=== PATIENT | male | born 1950 | race Caucasian/White ===

== ENCOUNTER 2017-12-22 09:23 | Day surgery (SDC) | payer OTHER ==
[2017-12-21 15:30] VITALS: BMI 29.8
[2017-12-22] MEDS ORDERED: TETRACAINE 0.5% OPHTH SOLN 2 ML BOTTLE ONE (12:52)
[2017-12-22] MEDS ORDERED: BACITRACIN 3.5 GM OPTHALMIC OINT TUBE ONE (12:52)
[2017-12-22] MEDS ORDERED: POVIDONE-IODINE 5% OPHTHALMIC PREP 30 ML SOLUTION ONE (12:52)
[2017-12-22] MEDS ORDERED: LIDOCAINE 1%/EPI 1:100000 (20 ML MULTI DOSE VIAL) ONE (12:53)
[2017-12-22] MEDS ORDERED: BSS (NA/CA/MG/K) BALANCED SALT SOLUTION OPHTH SOLN 15 ML BOTTLE ONE (12:53)
[2017-12-22] MEDS ORDERED: MIDAZOLAM HCL 2 MG/2 ML SINGLE DOSE VIAL ONE (13:05)
[2017-12-22] MEDS ORDERED: BUPIVACAINE HCL 0.5% 250 MG/50 ML VIAL IJ ONE (13:34)
[2017-12-22] MEDS ORDERED: LIDOCAINE 1%/EPI 1:100000 (50 ML MULTI DOSE VIAL) INF ONE (13:34)
[2017-12-22] MEDS ORDERED: ceFAZolin SODIUM 1 GM VIAL ONE (13:43)
[2017-12-22] MEDS ORDERED: DEXAMETHASONE SOD PHOSPHATE 4 MG/1 ML VIAL ONE (13:43)
[2017-12-22] MEDS ORDERED: ONDANSETRON 4 MG/2 ML VIAL ONE (13:43)
[2017-12-22] MEDS ORDERED: BACITRACIN 3.5 GM OPTHALMIC OINT TUBE OS ONE (13:58)
[2017-12-22] MEDS ORDERED: ONDANSETRON 4 MG/2 ML VIAL IVPUSH PRN (14:23)
[2017-12-22] MEDS ORDERED: oxyCODONE HCL 5 MG TABLET PO PRN (14:23)
[2017-12-22] MEDS ORDERED: LACTATED RINGERS SOLUTION 1,000 ML IV SCH (14:30)
[2017-12-22 15:18] VITALS: TEMP 97.6
--- NOTE | 2017-12-22 15:31 | OP ---
DATE OF OPERATION: 12/22/2017 PREOPERATIVE DIAGNOSIS: Involutional entropion, left lower lid. POSTOPERATIVE DIAGNOSIS: Involutional entropion, left lower lid. PROCEDURE: 1. Lateral tarsal strip, left lower lid. 2. Transconjunctival plication of retractors. 3. Excision of orbicularis flap, left lower lid. SURGEON: Rosey Hou MD ANESTHESIA: Local with sedation. COMPLICATIONS: None. ESTIMATED BLOOD LOSS: 2-3 mL DESCRIPTION OF OPERATION: Patient was brought to the operating room, placed on the operating room table. Vital signs were monitored by Anesthesia. Tetracaine was placed in both eyes. Timeout was performed. Lateral canthal angle was marked, left lateral canthus. A 50/50 mixture of 2% Xylocaine with 1:100,000 epinephrine and 0.5% Marcaine was injected into the lateral canthus down to periosteum. Lateral third of the upper and lower lid and subconjunctivally in the inferior fornix. Patient was prepped and draped in usual sterile fashion exposing both eyes, and 4-0 silk traction stitch was passed through the central lid margin. Lateral canthal incision was made with a 15 blade, carried down to the orbital rim with a Chaffee needle. The inferior tristen of the lateral canthal tendon was from the orbit with sharp dissection. It was overlapped, marked with a sterile marking pen, divided into an anterior and posterior lamella. The anterior lamella was excised. The posterior lamella was denuded of posteriorly and superiorly. Lateral tarsal strip was reattached to the orbital rim with double-arm 5-0 Prolene suture, reinforced with two 6-0 Vicryl lasso sutures. This was not tied yet. The lid was everted over a Desmarres retractor. Transconjunctival incision was made with_ subconjunctival retractors, exposing the postorbicularis fascia, releasing the septum. Pretarsal orbicularis was now dissected off of the tarsus, the inferior third. Partial-thickness orbicularis flap was raised in the pretarsal orbicularis and then excised, and then, the retractors were then sutured to the inferior and anterior tarsal plate using three or four 6-0 Vicryl sutures in buried fashion, plicating the retractors to the anterior-inferior tarsus, and closing the conjunctiva. The lateral canthal angle was reformed with 5-0 chromic buried to the saldana line of the upper and lower lid. The Prolene was tied, attaching the tarsal strip to the rim. The excess tarsal strip was overlapped with a Prolene, tied with a 5-0 chromic. Antibiotic irrigation was used. The muscle layer was closed with 5-0 chromic, and the skin was closed with running 6-0 plain suture. The traction stitch was removed. Bacitracin ointment was placed in the eye and on the sutures, and the patient was taken to recovery room in stable condition. ROSEY HOU M.D. [id number]
[2017-12-22 15:57] VITALS: BP 122/74; PULSE 56
== END 2017-12-22 15:40 | disposition home or self-care (01) ==
LOC: FASU 09:23
PROVIDERS: ATTEND Ophthalmology
PROC: 08BR0ZZ Excision of Left Lower Eyelid, Open Approach (ICD-10-PCS; principal; 2017-12-22 13:34)
DX: H02.005 Unspecified entropion of left lower eyelid (principal)
CPT/HCPCS: 94760

== ENCOUNTER → 2018-01-12 | Day surgery (SDC) | payer OTHER ==
[2018-01-05 15:25] VITALS: BMI 31.1
[~2018-01-12] MED LIST: BACITRACIN 3.5 GM OPTHALMIC OINT TUBE ONE; BUPIVACAINE HCL/PF 0.5% (5MG/ML) 10 ML VIAL ONE; LACTATED RINGERS SOLUTION 1,000 ML IV SCH; LIDOCAINE 1%/EPI 1:100000 (20 ML MULTI DOSE VIAL) ONE; MIDAZOLAM HCL 2 MG/2 ML SINGLE DOSE VIAL ONE; ONDANSETRON 4 MG/2 ML VIAL IVPUSH PRN; POVIDONE-IODINE 5% OPHTHALMIC PREP 30 ML SOLUTION ONE; PROPOFOL 20 ML ONE; SUCCINYLCHOLINE CHLORIDE 200 MG/10 ML VIAL ONE; TETRACAINE 0.5% OPHTH SOLN 2 ML BOTTLE ONE; ceFAZolin SODIUM 1 GM VIAL ONE; oxyCODONE HCL 5 MG TABLET PO PRN
[2018-01-12 10:11] VITALS: BP 126/58; TEMP 97.5
[2018-01-12 10:36] VITALS: PULSE 48
--- NOTE | 2018-01-12 12:00 | OP ---
DATE OF OPERATION: 01/12/2018 PREOPERATIVE DIAGNOSIS: Involutional entropion, right lower lid. POSTOPERATIVE DIAGNOSIS: Involutional entropion, right lower lid. PROCEDURE: 1. Lateral tarsal strip, right lower lid. 2. Transconjunctival recession of septum and plication of retractors, right lower lid. 3. Partial-thickness orbicularis flap excision, right lower lid. SURGEON: Rosey Hou MD ANESTHESIA: Local with sedation. COMPLICATONS: None. ESTIMATED BLOOD LOSS: 2 mL. OPERATION REPORT: Patient was brought to the operating room, placed on the operating room table. Vital signs monitored by Anesthesia. Tetracaine was placed in both eyes. Lateral canthal line was marked at the right lateral canthus. Time-out was performed. Intravenous sedation was administered. A 50/50 mixture of 2% Xylocaine with 1:100,000 epinephrine and 7.5% Marcaine was injected subcutaneously in the lateral canthus down the periosteum, lateral third of the upper/lower lids, subconjunctivally at the inferior tarsus across the lower lid. Massage was applied for hemostasis. A total of 2-3 mL was injected. Patient was prepped and draped in the usual sterile fashion exposing both eyes. The lateral canthal incision was made with the 15 blade through skin and subcutaneous tissue, carried down to the orbital rim with a Mccracken needle. Inferior tristen and the lateral canthal tendon were from the orbital rim with sharp dissection and blunt dissection. Lid was overlapped at the orbital rim, marked with a sterile marking pin, divided into an anterior and posterior lamella. The anterior lamella was excised. The posterior lamella was denuded of epithelium posteriorly and superiorly. Retractors were released laterally creating a lateral tarsal strip. Lateral tarsal strip was secured to the internal surface of the orbital rim at the junction with the superior tristen and the lateral canthal tendon with double-arm 5-0 Prolene suture, reinforced with two 6-0 Vicryl lasso sutures, and this was not tied. A 4-0 silk retraction suture was placed through the central lid margin, and lid was everted over the Desmarres retractor. A transconjunctival incision was made at the inferior tarsus, so conjunctiva and retractors to the posterior orbicularis surface, and dissection was carried down to release the septum. The pretarsal orbicularis was from the tarsus with a Mccracken needle, and partial-thickness orbicularis flap excision was carried out at the inferior tarsal border. cautery was placed in this area. The retractors were then plicated to the anterior inferior tarsus with four 6-0 Vicryl sutures in buried fashion. The lateral canthal angles were reformed with 5-0 chromic sutures to the saldana line of the upper and lower lids with a buried knot, and the Prolene was then tied, attaching the tarsal strip to the orbital rim. The excess tarsal strip was overlapped with 5-0 chromic, the same 5-0 chromic that had been used to reform the lateral canthus. Subcuticular incisions were closed with 5-0 chromic after antibiotic irrigation, and the skin was closed with interrupted 6-0 plain suture. The traction sutures were removed. Bacitracin ointment was placed in the eye and the sutures of the lateral canthus, and the patient was taken to the recovery room in stable condition. ROSEY HOU M.D. [id number]
== END | disposition home or self-care (01) ==
LOC: FASU 06:41
PROVIDERS: ATTEND Ophthalmology
PROC: 08SQ0ZZ Reposition Right Lower Eyelid, Open Approach (ICD-10-PCS; principal; 2018-01-12 08:08)
DX: H02.112 Cicatricial ectropion of right lower eyelid (principal)
CPT/HCPCS: 94760